=== PATIENT | male | born 1965 | race Caucasian/White ===

== ENCOUNTER → 2023-07-02 13:09 | Outpatient (CLI) | payer OTHER, MEDICAID, SELFPAY ==
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
== END ==
LOC: RAD 13:11
PROVIDERS: PCP Family Medicine; Referring Provider Family Medicine; Visit Provider Family Medicine
DX: M51.36 Other intervertebral disc degeneration, lumbar region (principal); M79.605 Pain in left leg; Z87.828 Personal history of other (healed) physical injury and trauma
CPT/HCPCS: 72100

== ENCOUNTER 2023-08-09 08:28 | Emergency (ER) | payer OTHER, MEDICAID, SELFPAY ==
[2023-08-09] VITALS (7 sets, daily range): BP systolic 121–129; BP diastolic 77–85; PULSE 64–73; RESP 13–19; TEMP 36.6–36.8; O2SAT 94–98
--- NOTE | 2023-08-09 08:47 | DI.RAD.S_ITS ---
PROCEDURE: XR CHEST 1V INDICATIONS: chest pain TECHNIQUE: One view of the chest was acquired. COMPARISON: None. FINDINGS: Surgical changes and devices: None. Lungs and pleura: Lungs are clear. No pleural effusions or pneumothorax. Mediastinum: Mediastinal contours appear normal. Heart size is normal. Bones and chest wall: No suspicious bony lesions. Overlying soft tissues appear unremarkable. IMPRESSION: No acute cardiopulmonary abnormality is seen. Dictated by: Nikunj Iniguez M.D. on 08/09/2023 at 9:14 Approved by: Nikunj Iniguez M.D. on 08/09/2023 at 9:15
[2023-08-09] MEDS: ASPIRIN 81 MG CHEW TAB 324 MG PO (09:00)
[2023-08-09 09:02] LABS: Add Manual Diff / Slide Review NO; Basophils Absolute Auto 100 /uL (0-100); Basophils Percent Auto 0.7 % (0-2); Eosinophils Absolute Auto 200 /uL (0-450); Eosinophils Percent Auto 2.4 % (2-4); Hematocrit 44.1 % (41-53); Hemoglobin 15.2 g/dL (13.5-17.5); Lymphocytes Absolute Auto 2100 /uL (1100-4500); Lymphocytes Percent Auto 28.1 % (25-40); Mean Corpuscular HGB Conc 34.5 % (30-36); Mean Corpuscular Hemoglobin 29.9 PG (26-34); Mean Corpuscular Volume 86.6 fL (80-100); Monocytes Absolute Auto 600 /uL (0-900); Monocytes Percent Auto 7.6 % (3-14); Neutrophils Absolute Auto 4600 /uL (1500-7000); Neutrophils Percent Auto 61.2 % (50-75); Platelet Count 289 X10^3/uL (150-400); Red Blood Cell Count 5.09 X10^6/uL (4.5-5.9); Red Cell Distribution Width 14.1 % (11.6-14.8); White Blood Cell Count 7.6 X10^3/uL (4.5-11.0)
--- NOTE | 2023-08-09 09:05 | ED_ITS ---
HPI - Chest Pain General Chief Complaint: Chest Pain Stated Complaint: heaviness on chest, heartburn, arm numbness Time Seen by Provider: 08/09/23 08:47 History of Present Illness HPI narrative: Patient is a 58-year-old male history of smoking presenting today with on chest discomfort. He reports that he is thought he had some acid reflux ongoing all week. He reports a dull ache sometimes it was his right side. It is pretty constant throughout the week. No significant shortness of breath. No provocation or palliation. No known coronary artery disease hypertension or diabetes. 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 He has not tried anything at home to help with pain. Patient reports not reproducible with palpation movement or position. Related Data Previous Rx's Medication Instructions Recorded disabled parking #1 ea 06/20/23 Allergies Allergy/AdvReac Type Severity Reaction Status Date / Time bee venom protein (honey bee) Allergy Severe Anaphylaxis Verified 07/06/23 08:05 advesive Allergy Mild fever Uncoded 07/06/23 08:05 Patient History Social History Smoking Status: Current some day smoker (1/2 pack a day) Smoking Status: Current some day smoker (1/2 pack a day) Exam Initial Vital Signs Initial Vital Signs: Vital Signs Temperature 98.1 F 08/09/23 08:35 Pulse Rate 73 08/09/23 08:35 Respiratory Rate 17 08/09/23 08:35 Blood Pressure 129/84 08/09/23 08:35 Pulse Oximetry 98 08/09/23 08:35 Oxygen Delivery Method Room Air 08/09/23 08:35 GENERAL: Alert pleasant well-appearing 50-year-old male and in [no acute] distress. HEENT: Head atraumatic,EOMI, pupils reactive, face symmetric, [moist] mucous membranes CARDIOVASCULAR: Regular rate and rhythm without murmurs, rubs or gallops. RESPIRATORY: Breath sounds equal bilaterally, no wheezes rales or rhonchi. ABDOMEN: Soft, nontender. Normoactive bowel sounds all 4 quadrants. No guarding or rebound. EXTREMITIES: Normal range of motion, no clubbing or edema. Neurovascularly intact NEUROLOGICAL: Alert and oriented x4.Normal gait and speech. Cranial nerves II through XII grossly intact. SKIN: Warm, dry, no laceration, no petechiae, no rashes or lesions. Scores HEART Score Heart Score history: Slightly Suspicious Heart Score EKG: Normal Heart Score Age: 45-64 years old Heart Score risk factors: 1-2 risk factors Heart Score troponin: < or = to normal limit Heart Score Total: 2 Course Orders Ordered: ED Orders 08/09/23 10:55 Trop I [Troponin I] Stat Discontinued Medications Aspirin (Aspirin 81 Mg Chew Tab) 324 mg PO NOW ONE Stop: 08/09/23 08:48 Last Admin: 08/09/23 09:00 Dose: 324 mg Documented By: MAGDA Vital Signs Vital signs: Vital Signs - 8 hr 08/09/23 11:49 Temperature 98.2 F Pulse Rate 65 Respiratory Rate 16 Blood Pressure 124/85 Pulse Oximetry 98 Oxygen Delivery Method Room Air MDM - Chest Pain Lab Data 08/09/23 08:55 08/09/23 08:55 Labs: Lab Results 08/09/23 08/09/23 Range/Units 08:55 10:55 WBC 7.6 (4.5-11.0) X10^3/uL RBC 5.09 (4.5-5.9) X10^6/uL Hgb 15.2 (13.5-17.5) g/dL Hct 44.1 (41-53) % MCV 86.6 (80-100) fL MCH 29.9 (26-34) PG MCHC 34.5 (30-36) % RDW 14.1 (11.6-14.8) % Plt Count 289 (150-400) X10^3/uL Neut % (Auto) 61.2 (50-75) % Lymph % (Auto) 28.1 (25-40) % [place] % (Auto) 7.6 (3-14) % Eos % (Auto) 2.4 (2-4) % Baso % (Auto) 0.7 (0-2) % Neut # (Auto) 4600 (2683-3475) /uL Lymph # (Auto) 2100 (0957-9105) /uL [place] # (Auto) 600 (0-900) /uL Eos # (Auto) 200 (0-450) /uL Baso # (Auto) 100 (0-100) /uL Sodium 138 (137-145) mmol/L Potassium 4.5 (3.4-5.1) mmol/L Chloride 107 (98-107) mmol/L Carbon Dioxide 27 (22-32) mmol/L BUN 11 (9-20) mg/dL Creatinine 0.90 (0.66-1.25) mg/dL Estimated GFR > 60 (>60) mL/min BUN/Creatinine Ratio 12.2 (6-22) Glucose 103 H (70-100) mg/dL Calcium 9.0 (8.4-10.2) mg/dL Total Bilirubin 0.5 (0.2-1.3) mg/dL AST 26 (17-59) IU/L ALT 32 (<50) IU/L Alkaline Phosphatase 81 (38-126) U/L Total Creatine Kinase 72 (55-170) U/L Troponin I < 0.012 < 0.012 (0.01-0.034) ng/mL Total Protein 7.0 (6.3-8.2) g/dL Albumin 4.3 (3.5-5.0) g/dL Globulin 2.7 (1.7-4.1) g/dL Albumin/Globulin Ratio 1.6 (1.0-2.8) Lipase 58 (23-300) U/L Imaging Data Chest x-ray: Radiologist's Impression: PROCEDURE: XR CHEST 1V INDICATIONS: chest pain TECHNIQUE: One view of the chest was acquired. COMPARISON: None. FINDINGS: Surgical changes and devices: None. Lungs and pleura: Lungs are clear. No pleural effusions or pneumothorax. Mediastinum: Mediastinal contours appear normal. Heart size is normal. Bones and chest wall: No suspicious bony lesions. Overlying soft tissues appear unremarkable. IMPRESSION: No acute cardiopulmonary abnormality is seen. Dictated by: Nikunj Iniguez M.D. on 08/09/2023 at 9:14 ECG Data Attestation: I personally reviewed and interpreted this ECG as follows: Prior ECG tracings: not available for review Interpretation: Normal sinus rhythm rate 71 PA interval 150 QRS [address] changes MDM Narrative Medical decision making narrative: Patient is a 50-year-old male known smoker presenting today with ongoing chest discomfort for about 1 week. It sounds constant in nature no provocation or palliation. He has a low risk heart score of 2. EKG does not show any sort of acute ischemic changes. Blood work has been reviewed he has 2- troponins no evidence of anemia electrolyte abnormality or PETRA Chest x-ray has been reviewed without any acute cardiopulmonary process Patient was given aspirin here in the emergency department. Pain seems relatively unchanged in very minimal. At this time recommend out patient workup and return as needed. Discussed with them that he is at risk with his smoking history and encouraged him to return to the ED if symptoms should change or worsen in any way. Discharge Plan Departure Patient Disposition: Home Clinical Impression: Chest pain Instructions: DI for Chest Pain Activity Restrictions/Additional Instructions: *You have been diagnosed with chest pain *What to do: At this time please talk with your primary care provider about further cardiac testing such as a stress test and/or echocardiogram Please stop smoking *Continue to take medications as directed I do recommend aspirin 81 mg daily *Follow up with your primary care provider in 2-3 days or call [phone] *Return to ER if you should have increasing chest pain shortness of breath weakness or any new, worsening or concerning symptoms Prescriptions: No Action (DME) disabled parking See Rx Instructions .ROUTE .[facility] Qty: 1 0RF Rx Instructions: I find this patient to be medically disabled and qualified for Disabled Parking as indicated, and signed, on the Accompanying Disabled Parking Application for individuals. Referrals: Karen Montero DO [Primary Care Provider] - Stand Alone Forms: Patient Portal/API
--- NOTE | 2023-08-09 09:07 | PC.NURSE ---
chest pain x 1 week. states it may or may not be indigestion related. pt states he has not taken any medicine at home to help with his pain. pt denies associated symptoms. no sob. etc.
--- NOTE | 2023-08-09 09:07 | PC.NURSE ---
Denies any swelling.
[2023-08-09 09:13] LABS: Alanine Aminotransferase 32 IU/L (<50); Albumin 4.3 g/dL (3.5-5.0); Albumin Globulin Ratio 1.6 (1.0-2.8); Alkaline Phosphatase 81 U/L (38-126); Aspartate Aminotransferase 26 IU/L (17-59); BUN Creatinine Ratio 12.2 (6-22); Bilirubin Total 0.5 mg/dL (0.2-1.3); Blood Urea Nitrogen 11 mg/dL (9-20); Carbon Dioxide 27 mmol/L (22-32); Chloride 107 mmol/L (98-107); Creatine Kinase 72 U/L (55-170); Estimated Glomerular Filt Rate > 60 mL/min (>60); Globulin 2.7 g/dL (1.7-4.1); Glucose 103 mg/dL (70-100); HEMOLYSIS < 15 (0-50); Lipase 58 U/L (23-300); Potassium 4.5 mmol/L (3.4-5.1); Sodium 138 mmol/L (137-145)
[2023-08-09 09:25] LABS: Troponin I < 0.012 ng/mL (0.01-0.034)
[2023-08-09 11:25] LABS: Troponin I < 0.012 ng/mL (0.01-0.034)
== END 2023-08-09 11:51 | disposition home or self-care (01) ==
PROVIDERS: Emergency Provider Emergency Medicine; PCP Family Medicine
DX: R07.9 Chest pain, unspecified (principal)
CPT/HCPCS: 71045; 80053; 82550; 83690; 84484; 85025; 93005; 99283; 99284